=== PATIENT | female | born 1975 | race American Indian/Alaskan Native ===

== ENCOUNTER 2022-07-25 06:17 | Day surgery (SDC) | payer OTHER ==
[2022-06-25 13:43] LABS: Hematocrit 38.2 % (30.3-42.9); Hemoglobin 12.7 gm/dl (10.1-14.3); Mean Corpuscular HGB Conc 33 % (30-34); Mean Corpuscular Volume 88 fl (79-97); Platelet Count 294 K/mm3 (140-440); Red Blood Count 4.34 M/mm3 (3.65-5.03); Red Cell Distribution Width 14.4 % (13.2-15.2)
[2022-06-25 14:00] LABS: BUN/Creatinine Ratio 19; Blood Urea Nitrogen 15 mg/dL (7-17); Calcium 9.4 mg/dL (8.4-10.2); Hemolysis Index 3
--- NOTE | 2022-07-23 20:38 | History and Physical Report ---
History of Present Illness Date of examination: 07/23/22 History of present illness: Patient has been reassessed/reevaluated. H&P has been reviewed. No interval changes. This is a year 47 old patient with complains of persistent pelvic pain and persist ovarian cyst which is probably etiology of her pain Patient's work up has included several transvaginal ultrasound which revealed ovariancysts. Patient's symptoms when present disrupts her normal daily activities Patient desires definitive treatment Patient Profile: 47 Years Old Female LMP: 11/2014 Height: 62 inches Weight: 227 pounds BMI: 41.51 Temp: 98.1 degrees F BP sittin / 80 (right arm) Menstrual History: LMP (date): 11/2014 Current Method of Contraception: Hysterectomy Date of Last Pap Smear: 01/22/2022 Past History : 5 Term Births: 0 Premature Births: 2 Living Children: 2 Para: 2 Mult. Births: 0 Prev : 1 Aborta: 3 Elect. Ab: 0 Spont. Ab: 2 Ectopics: 1 Current Allergies (reviewed today): No known allergies Past Medical History: Covid 19 (06/2002) Hypertension inconpetent cervix Fibroids Past Surgical History: Cerclage X3 (2000) Tubal Ligation (2000) Laparoscopy (2003) diagnostic ovarion cyst Laparoscopic Hysterectomy (2014) w/ LS&O Umbilical hernia Ear surgery Family History Summary: Other Family Member - Has No Family History of Ovarvian Cancer - Entered On: Other Family Member - Has No Family History of Colon Cancer - Entered On: 01/22/2022 Other Family Member - Has No Family History of Breast Cancer - Entered On: 01/22/2022 Other Family Member - Has Family History of Hypertension - Entered On: 01/22/2022 Other Family Member - Has Family History of Diabetes - Entered On: 01/22/2022 Other Family Member - Has Family History of CVA or Stroke - Entered On: 01/22/2022 Other Family Member - Has Family History of Coronary Heart Disease - Entered On: 01/22/2022 Social History: Marital Status: Children: 2 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 Complains of pelvic pain. Denies vaginal discharge, incontinence, dysuria, hematuria, urinary frequency, amenorrhea, menorrhagia, abnormal vaginal bleeding, genital sores, decreased libido, painful periods, painful sex, urinary urgency, hot flashes, vaginal dryness, vaginal itching and vaginal odor. CV Denies chest pains, palpitations, syncope, dyspnea on exertion, orthopnea, PND and peripheral edema. Resp Denies cough, dyspnea at rest, excessive sputum, hemoptysis, wheezing and pleurisy. GI Denies nausea, vomiting, diarrhea, constipation, change in bowel habits, abdominal pain, melena, hematochezia, jaundice, gas/bloating, indigestion/heartburn, dysphagia and odynophagia. Breast Denies left breast lump, right breast lump, nipple discharge, bloody discharge from nipple, breast pain, abnormal mammogram and breast enlargement. Psych Denies depression, anxiety, irritability and mood swings. Past History Past Medical History: other (SEE HPI for DETAILS) Medications and Allergies Allergies Allergy/AdvReac Type Severity Reaction Status Date / Time shellfish derived Allergy Swelling Verified 07/17/22 13:53 Home Medications Medication Instructions Recorded Confirmed Last Taken Type Atenolol/Chlorthalidone [Tenoretic 1 tab PO QDAY 06/24/22 07/25/22 07/24/22 08:0 0 History 50-25] Omeprazole 40 mg PO QDAY 06/24/22 07/25/22 07/25/22 05:00 History Review of Systems Constitutional: other (SEE HPI for DETAILS) Exam - Physical Exam Narrative exam: HEENT: normocephalic, no lesions or deformities Skin no significant abnormal lesions or rashes Chest: respiratory effort normal, clear to auscultation CV: regular, normal S1-S2, no murmur, no rub, no gallop Abdomen: Obese Tender in suprapubic area, soft, no masses Neuro: no gross anomalities Extremities: no clubbing, cyanosis, or edema [employer] Exams Vulva/Vagina: No lesions, normal BUS, normal rugae Cervix: Surgically absent Well healed vaginal cuff Uterus: Surgically absent Adnexae: unable to palpate due to patient's guarding Rectovaginal: exam defered - Constitutional Vitals: Temp Pulse Resp BP Pulse Ox 97.9 F 67 16 126/80 100 06/25/22 13:10 06/25/22 13:10 06/25/22 13:10 06/25/22 13:10 06/25/22 13:10 Results - Labs CBC & Chem 7: 06/25/22 13:20 06/25/22 13:20 Assessment and Plan - Patient Problems (1) Chronic pelvic pain in female Current Visit: No Status: Acute Plan to address problem: Discussed possible etiologies including pelvic adhesive disease, endometriosis or inflammatory causes. Conservative therapies have failed. Patient desires definitive treatment Patient's symptoms when present disrupts her normal daily activities Probably secondary to # 2. Laparoscopy discussed .proceed Discuss the risks of the surgery including infection, bleeding possibly heavy enough to require a blood transfusion, possible damage to adjacent organs. discuss of possibility of laparotomy needed. Patient understands her risks of adjacent organ damage is increased due to her previous surgery(ies) Questions answered patient agreed to proceed (2) Complex cyst of right ovary Current Visit: No Status: Acute Plan to address problem: Diagnosis explained to patient . Questions answered. Patient desires removal Pateint this adam leave her menopausal Patient understands and desires to proceed. (3) Moderate hypertension Current Visit: No Status: Chronic (4) BMI 40.0-44.9, adult Current Visit: No Status: Chronic Plan to address problem: Patient has been advised that obesity does increase risks of surgical and risks of post operative complications. (5) History of COVID-19 Current Visit: No Status: Chronic
[~2022-07-25 06:17] MED LIST: ACETAMINOPHEN 500 MG TAB PO SCH; CELECOXIB 200 MG CAP PO NR; GABAPENTIN 300 MG CAP PO NR; LACTATED RINGERS 1,000 ML IV SCH; MIDAZOLAM 2 MG/2 ML INJ IV NR; SCOPOLAMINE TRANSDERMAL PATCH 72 HR TD NR
[2022-07-25] MEDS ORDERED: BACTERIOSTATIC SODIUM CHLORIDE 0.9% 30 ML VIAL INFILTRATI ONE (06:49)
[2022-07-25] MEDS ORDERED: BUPIVACAINE/PF (0.5%) 5 MG/1 ML 10 ML VIAL INFILTRATI ONE ×2 (07:16→09:08)
--- NOTE | 2022-07-25 07:28 | Anesthesia Day of Surgery ---
Anesthesia Day of Surgery - Day of Surgery Patient Examined: Yes Patient H&P Reviewed: Yes Patient is NPO: Yes
--- NOTE | 2022-07-25 07:28 | Anesthesia Consultation ---
Anesthesia Consult and Med Hx Date of service: 07/25/22 - Airway Anesthetic Teeth Evaluation: Good ROM Head & Neck: Adequate Mental/Hyoid Distance: Adequate Mallampati Class: Class III Intubation Access Assessment: Possibly Difficult - Pre-Operative Health Status ASA Pre-Surgery Classification: ASA3 Proposed Anesthetic Plan: General - Pulmonary Hx Smoking: Yes (former smoker quit 15yrs) Hx Respiratory Symptoms: Yes (COVID+ 1 mo ago w/ nasal congestion; resolved) - Cardiovascular System Hx Hypertension: Yes - Central Nervous System CVA: No - Gastrointestinal Hx Gastroesophageal Reflux Disease: Yes (took omeprazole this morning) - Endocrine Hx Renal Disease: No Hx Liver Disease: No Hx Insulin Dependent Diabetes: No Hx Non-Insulin Dependent Diabetes: No Hx Thyroid Disease: No - Other Systems Hx Obesity: Yes - Additional Comments Anesthesia Medical History Comments: No hx anesthetic complications.
[2022-07-25] MEDS ORDERED: HYDROmorphone 1 MG/1 ML INJ ONE (07:41)
[2022-07-25] MEDS ORDERED: ROCURONIUM 50 MG/5 ML INJ IV ONE (07:42)
[2022-07-25] MEDS ORDERED: LIDOCAINE MPF (2%) 20 MG/1 ML VIAL 5 ML ONE (07:42)
[2022-07-25] MEDS ORDERED: propofoL 200 MG/20 ML VIAL IV ONE (07:42)
[2022-07-25] MEDS ORDERED: dexAMETHasone 20 MG/5 ML VIAL ONE (08:25)
[2022-07-25] MEDS ORDERED: oxyCODONE /ACETAMINOPHEN 5-325MG TAB PO PRN (08:30)
[2022-07-25] MEDS ORDERED: HYDROmorphone 0.5 MG/0.5 ML INJ IV PRN (08:30)
[2022-07-25] MEDS ORDERED: ONDANSETRON 4 MG/2 ML INJ IV PRN (08:30)
[2022-07-25] MEDS ORDERED: KETOROLAC 30 MG/1 ML INJ ONE (09:01)
[2022-07-25] MEDS ORDERED: ONDANSETRON 4 MG/2 ML INJ ONE (09:01)
[2022-07-25] MEDS ORDERED: GLYCOPYRROLATE 0.4 MG/2 ML INJ ONE (09:03)
[2022-07-25] MEDS ORDERED: NEOSTIGMINE 10MG/10 ML INJ MDV ONE (09:03)
[2022-07-25] MEDS ORDERED: SODIUM CHLORIDE 0.9% IRR 1,500 ML BOTTLE IR ONE (09:08)
--- NOTE | 2022-07-25 09:28 | Operative Report ---
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 General anesthesia was induced without difficulty. She was placed in dorsal lithotomy position. Prepped and draped in usual sterile manner. A red rubber catheter was used to empty her urinary bladder Sponge stick was placed in her vagina for uterine manipulation. Attention was then switched to the patient's abdomen. An infra-umbilical incision was made with a scalpel. This incision was spread with a hemostat. A 5 mm trocar was placed in this incision while lifting high the abdominal wall. Intra-abdominal presence was verified directly with the laparoscope. The patient was then insufflated to approximately 3 L of CO2 gas. The patient's findings as noted above. An accessory puncture a 10 - 12 trocar was placed on her right lower quadrant suprapubically. The 10 -12 mm trocar was placed through this incision under direct visualization with no evidence of internal organ damage. An accessory puncture was made in the left lower quadrant. A 5 mm trocar was placed in this incision under direct visualization with no evidence of internal organ damage. . The oophorectomy was performed by using the ligature instrument the right ovarian vessels were clearly seen with the right ureter in the operative field. The ovarian vessels were cauterized and cut. Good hemostasis was found along the surgery site. The Endo Catch was then placed in the right lower quadrant incision and specimen was placed in the Endo Catch sack. The specimen was removed through this incision. Easily with clinical trials assistant ofa Gema clamp. The surgery site was again inspected and found to be hemostatic a Randal Kyle fascial closure device was then placed in the right lower quadrant and the fascial layer was closed successfully. The patient was deinsufflated. All instruments were removed. All 3 trocar sites were then closed S subcutaneously with 4-0 Vicryl. The patient tolerated procedure well awakened in the operating room and accompanied to the recovery room in good condition.
--- NOTE | 2022-07-25 09:32 | Short Stay Summary ---
Short Stay Documentation Date of service: 07/25/22 - History Principal diagnosis: Persistent right ovarian mass H&P: dictated Past Medical History: other (SEE HPI for DETAILS) - Allergies and Medications Current Medications: Allergies shellfish derived Allergy (Verified 07/17/22 13:53) Swelling TONGUE SWELLS AND WHELPS Home Medications Medication Instructions Recorded Confirmed Last Taken Type Atenolol/Chlorthalidone [Tenoretic 1 tab PO QDAY 06/24/22 07/25/22 07/24/22 08:00 History 50-25] Omeprazole 40 mg PO QDAY 06/24/22 07/25/22 07/25/22 05:00 History Active Medications Acetaminophen (Acetaminophen 500 Mg Tab) 1,000 mg PO PREOP JOSE Stop: 07/25/22 23:59 Last Admin: 07/25/22 07:07 Dose: 1,000 mg Celecoxib (Celecoxib 200 Mg Cap) 200 mg PO PREOP NR Stop: 07/25/22 23:59 Last Admin: 07/25/22 07:07 Dose: 200 mg Gabapentin (Gabapentin 300 Mg Cap) 300 mg PO PREOP NR Stop: 07/25/22 23:59 Last Admin: 07/25/22 07:07 Dose: 300 mg Hydromorphone HCl (Hydromorphone 0.5 Mg/0.5 Ml Inj) 0.5 mg IV Q10MIN PRN PRN Reason: Pain , Severe (7-10) Stop: 07/25/22 18:00 Lactated Ringer's (Lactated Ringers) 1,000 mls @ 100 mls/hr IV DIRECT JOSE Stop: 07/25/22 23:59 Last Admin: 07/25/22 07:23 Dose: 100 mls/hr Midazolam HCl (Midazolam 2 Mg/2 Ml Inj) 2 mg IV PREOP NR Stop: 07/25/22 23:59 Last Admin: 07/25/22 07:48 Dose: 2 mg Ondansetron HCl (Ondansetron 4 Mg/2 Ml Inj) 4 mg IV ONCE PRN PRN Reason: Nausea And Vomiting Stop: 07/25/22 18:00 Oxycodone/Acetaminophen (Oxycodone /Acetaminophen 5-325mg Tab) 1 tab PO ONCE PRN PRN Reason: Pain, Moderate (4-6) Stop: 07/25/22 18:00 Scopolamine (Scopolamine Transdermal Patch 72 Hr) 1 each TD PREOP NR Stop: 07/25/22 23:59 Last Admin: 07/25/22 07:08 Dose: 1 each - Physical exam General appearance: no acute distress Integumentary: no rash HEENT: Atraumatic Lungs: Normal air movement Breasts: deferred Heart: Regular rate Gastrointestinal: normal, tenderness (Is appropriate.), distended (Appropriate post laparoscopic procedure) Female Genitourinary: normal Rectal Exam: deferred Extremities: no ischemia - Brief post op/procedure progress note Date of procedure: 07/25/22 (See dictated operative note) Estimated blood loss: minimal Pathology: list (Right ovary) Specimen disposition: to lab Condition: stable - Hospital course Hospital course: Patient was admitted underwent the above him procedure without any complications. Patient will be discharged with follow-up in office in 1-2 weeks for postop check. - Disposition Condition at discharge: Good Disposition: 01 HOME / SELF CARE / HOMELESS - Discharge Diagnoses (1) Chronic pelvic pain in female Status: Acute (2) Complex cyst of right ovary Status: Acute (3) Moderate hypertension Status: Chronic (4) BMI 40.0-44.9, adult Status: Chronic (5) History of COVID-19 Status: Chronic Short Stay Discharge Plan Activity: advance as tolerated Diet: regular Wound: open to air Additional Instructions: Patient to call office for any fever, chills, nausea, vomiting or pain not controlled by pain medication. Follow up with: RHEA VASQUEZ MD [Staff Physician] - 7 Days
[2022-07-25] MEDS ORDERED: ACETAMINOPHEN 325 MG TAB PO PRN (10:00)
[2022-07-25] MEDS ORDERED: HYDROcodone/ACETAMINOPHEN 5-325 MG TAB PO PRN (10:00)
[2022-07-25 10:17] VITALS: BP 135/78
--- NOTE | 2022-07-25 14:24 | Post Anesthesia Evaluation ---
- Post Anesthesia Evaluation Patient Participated: Yes Airway Patent: Yes Stable Respiratory Function: Yes Nausea/Vomiting: No Temp > 96.8F: Yes Pain Manageable: Yes Adequeate Hydration: Yes Anesthesia Complications: No
== END 2022-07-25 10:50 | disposition home or self-care (01) ==
LOC: OR 06:17
PROVIDERS: ATTEND Obstetrics & Gynecology
DX: N83.8 Other noninflammatory disorders of ovary, fallopian tube and broad ligament (principal); D27.0 Benign neoplasm of right ovary; R10.2 Pelvic and perineal pain; I10 Essential (primary) hypertension; G43.909 Migraine, unspecified, not intractable, without status migrainosus; K21.9 Gastro-esophageal reflux disease without esophagitis; E66.9 Obesity, unspecified; Z90.710 Acquired absence of both cervix and uterus; Z79.899 Other long term (current) drug therapy; Z91.013 Allergy to seafood; Z87.891 Personal history of nicotine dependence; Z68.41 Body mass index [BMI] 40.0-44.9, adult; Z86.16 Personal history of COVID-19; Z98.51 Tubal ligation status; Z98.891 History of uterine scar from previous surgery; Z72.89 Other problems related to lifestyle; Z98.890 Other specified postprocedural states
CPT/HCPCS: 36415; 58661; 80048; 85027; 88307; J1100; J1170; J1815; J1885; J2250; J2405; J2704; J2710; J3490; J7120; U0003; 88305